=== PATIENT | female | born 1980 | race Caucasian/White ===

== ENCOUNTER → 2017-05-26 | Outpatient (CLI) | payer MEDICAID | LOC: BMCIMAGING 15:10 | PROVIDERS: ATTEND Internal Medicine | DX: N83.01 Follicular cyst of right ovary (principal); N83.02 Follicular cyst of left ovary; T83.32XA Displacement of intrauterine contraceptive device, initial encounter ==

== ENCOUNTER 2017-07-01 17:53 | Emergency (ER) | payer MEDICAID ==
[2017-07-01 17:59] VITALS: TEMP 99
--- NOTE | 2017-07-01 18:30 | EDPHY ---
H & P Stated Complaint: Sore throat;neg strep at [facility] care;airway patent Time Seen by Provider: 07/01/17 18:23 HPI/ROS: HPI: This is a 37-year-old female who presents with Chief Complaint: Sore throat;neg strep at [facility];airway patent Location: Throat Quality: Sore Duration: 2 days Signs and Symptoms: No fever, no cough, no neck stiffness, + right swollen glands, Timing: Rapidly worsening Severity: Severe Context: Patient presents from the urgent care for concerns of sore throat that she has had for the last 2 days. She tested negative 1st rapid strep at the urgent care. She reports throat pain is constant and severe in nature, with difficulty swallowing decreased oral intake today. She also complains of swollen right gland that is severe and constant pain. She has a history of strep pharyngitis and peritonsillar abscess several years ago that required drainage and antibiotics. She has taken Tylenol p.m. last night with mild relief of discomfort. Modifying Factors: See above Comment: ROS: see HPI Constitutional: No fever, no chills, no weight loss Eyes: No blurred vision Respiratory: No shortness of breath, no cough Cardiovascular: No chest pain Gastrointestinal: No nausea, no vomiting, no diarrhea Genitourinary: No dysuria Extremities: No myalgias Neurologic: No weakness, no numbness Skin: No rashes Hematologic: No bruising, no bleeding MEDICAL/SURGICAL/SOCIAL HISTORY: Medical history: Generally healthy. Does not take any regular medications. Surgical history: Denies Social history: Employed CONSTITUTIONAL: awake and alert, no obvious distress HEENT: Atraumatic and normocephalic, PERRL, EOMI. Tympanic membranes clear. Oropharynx clear, tonsil on the right is 2+ mild erythema with white exudate; left tonsils 1+ mild erythema; white exudate; uvula midline. Halitosis noted. moist pink mucosa. Airway patent. Right anterior cervical lymphadenopathy noted with tenderness to palpation. No meningismus. Cardiovascular: Normal S1/S2, regular rate, regular rhythm, without murmur rub or gallop. PULMONARY/CHEST: Symmetrical and nontender. Clear to auscultation bilaterally. Good air movement. No accessory muscle usage. ABDOMEN: Soft, nondistended, nontender, no rebound, no guarding, no peritoneal signs, no masses or organomegaly. No CVAT. EXTREMITIES: 2/2 pulses, strength 5/5, no deformities, no clubbing, no cyanosis or edema. NEUROLOGICAL: no focal neuro deficits. GCS 15. SKIN: Warm and dry, no erythema. no rash. Good capillary refill. Source: Patient Exam Limitations: No limitations - Personal History LMP (Females 10-55): 8-14 Days Ago Current Tetanus Diphtheria and Acellular Pertussis (TDAP): Yes - Medical/Surgical History Hx Asthma: No Hx Chronic Respiratory Disease: No Hx Diabetes: No Hx Cardiac Disease: No Hx Renal Disease: No Hx Cirrhosis: No Hx Alcoholism: No Hx HIV/AIDS: No Hx Splenectomy or Spleen Trauma: No - Social History Smoking Status: Never smoked Constitutional: Initial Vital Signs Temperature (C) 37.2 C 07/01/17 17:56 Heart Rate 88 07/01/17 17:56 Respiratory Rate 16 07/01/17 17:56 Blood Pressure 123/84 H 07/01/17 17:56 O2 Sat (%) 98 07/01/17 17:56 O2 Delivery Mode Room Air Allergies/Adverse Reactions: No Known Allergies Allergy (Unverified 07/01/17 17:56) Home Medications: Medication Instructions Recorded NK [No Known Home Meds] 07/01/17 Medical Decision Making ED Course/Re-evaluation: Labs, IV fluid, IV medications ordered Patient is afebrile without systemic signs. Parker criteria is 2; equivocal for antibiotic use Rapid strep was negative at the urgent care and sent for culture; will not repeat test. Patient does not have signs of airway compromise/respiratory distress/meningitis /sepsis/tonsillar abscess/Josh's angina Given IVF 1 liter, IV Decadron, IV Toradol and PO viscous lidocaine IM Bicillin given due to hx strep and tonsillar abscess. [place] positive Reassessed patient who is laughing and giggling and cuddling with her significant other in the erivn bed. Advised supportive care. Differential Diagnosis: Differential diagnosis includes but is not limited to strep pharyngitis, viral pharyngitis, lymphadenitis, mononucleosis, viral syndrome. - Data Points Laboratory Results: Laboratory Results 07/01/17 18:55 07/01/17 18:55 07/01/17 07/01/17 07/01/17 18:55 18:55 18:55 WBC 18.36 10^3/uL H 10^3/uL (3.80-9.50) RBC 4.95 10^6/uL 10^6/uL (4.18-5.33) Hgb 14.9 g/dL g/dL (12.6-16.3) Hct 42.4 % % (38.0-47.0) MCV 85.7 fL fL (81.5-99.8) MCH 30.1 pg pg (27.9-34.1) MCHC 35.1 g/dL g/dL (32.4-36.7) RDW 11.9 % % (11.5-15.2) Plt Count 265 10^3/uL 10^3/uL (150-400) MPV 9.4 fL fL (8.7-11.7) Neut % (Auto) 84.9 % H % (39.3-74.2) Lymph % (Auto) 7.3 % L % (15.0-45.0) [place] % (Auto) 6.8 % % (4.5-13.0) Eos % (Auto) 0.1 % L % (0.6-7.6) Baso % (Auto) 0.4 % % (0.3-1.7) Nucleat RBC Rel Count 0.0 % % (0.0-0.2) Absolute Neuts (auto) 15.59 10^3/uL H 10^3/uL (1.70-6.50) Absolute Lymphs (auto) 1.34 10^3/uL 10^3/uL (1.00-3.00) Absolute Monos (auto) 1.24 10^3/uL H 10^3/uL (0.30-0.80) Absolute Eos (auto) 0.02 10^3/uL L 10^3/uL (0.03-0.40) Absolute Basos (auto) 0.07 10^3/uL 10^3/uL (0.02-0.10) Absolute Nucleated RBC 0.00 10^3/uL 10^3/uL (0-0.01) Immature Gran % 0.5 % % (0.0-1.1) Immature Gran # 0.10 10^3/uL 10^3/uL (0.00-0.10) ESR 9 MM/HR MM/HR (0-20) Sodium 142 mEq/L mEq/L (134-144) Potassium 4.0 mEq/L mEq/L (3.5-5.2) Chloride 104 mEq/L mEq/L (97-110) Carbon Dioxide 26 mEq/l mEq/l (22-31) Anion Gap 12 mEq/L mEq/L (8-16) BUN 7 mg/dL mg/dL (7-23) Creatinine 0.8 mg/dL mg/dL (0.6-1.0) Estimated GFR > 60 Glucose 78 mg/dL mg/dL (70-100) Calcium 9.1 mg/dL mg/dL (8.5-10.4) Monoscreen POSITIVE H (NEGATIVE) Medications Given: Discontinued Medications Dexamethasone (Decadron Injection) 8 mg IVP EDNOW ONE Stop: 07/01/17 18:41 Last Admin: 07/01/17 19:26 Dose: 8 mg Sodium Chloride (Ns) 1,000 mls @ 0 mls/hr IV EDNOW ONE; Wide Open PRN Reason: Protocol Stop: 07/01/17 18:41 Last Admin: 07/01/17 19:15 Dose: 1,000 mls Ketorolac Tromethamine (Toradol) 15 mg IVP/IM EDNOW ONE Stop: 07/01/17 18:41 Last Admin: 07/01/17 19:28 Dose: 15 mg Lidocaine (Lidocaine 2% Viscous) 15 ml PO EDNOW ONE Stop: 07/01/17 18:41 Last Admin: 07/01/17 19:20 Dose: 15 ml Penicillin G Procaine/Benzathine (Bicillin C-R 1.2mm Units Syr) 1,200,000 unit IM ONCE ONE PRN Reason: Protocol Stop: 07/01/17 18:41 Last Admin: 07/01/17 19:27 Dose: 1,200,000 unit Departure - Departure Disposition: Home, Routine, Self-Care Clinical Impression: Infectious mononucleosis without complication Qualifiers: Infectious mononucleosis etiology: other organism Qualified Code(s): B27.80 - Other infectious mononucleosis without complication Condition: Good Instructions: Mononucleosis (ED) Referrals: Anya Odonnell MD [Primary Care Provider] - 5-7 days, if not improved
[2017-07-01] MEDS ORDERED: KETOROLAC 15 MG/1 ML SDV IVP/IM ONE (18:40)
[2017-07-01] MEDS ORDERED: NS 1,000 ML IV ONE (18:40)
[2017-07-01] MEDS ORDERED: BICILLIN C-R 1200000 UNIT/2 ML SYRINGE IM ONE (18:40)
[2017-07-01] MEDS ORDERED: LIDOCAINE 2% VISCOUS 15 ML UDCUP PO ONE (18:40)
[2017-07-01] MEDS ORDERED: DEXAMETHASONE 4 MG/ML VIAL IVP ONE (18:40)
[2017-07-01 19:29] LABS: PLATELET COUNT 265 10^3/uL (150-400)
[2017-07-01 20:14] VITALS: BP 130/76; PULSE 103; RESP 14; O2SAT 96
== END 2017-07-01 20:14 | disposition home or self-care (01) ==
PROC: 3E0337Z Introduction of Electrolytic and Water Balance Substance into Peripheral Vein, Percutaneous Approach (ICD-10-PCS; principal; 2017-07-01)
DX: B27.80 Other infectious mononucleosis without complication (principal); E86.9 Volume depletion, unspecified
CPT/HCPCS: 96374; J1100; J1885

== ENCOUNTER → 2018-02-21 | Outpatient (CLI) | payer MEDICAID | LOC: BRMIMAGING 09:15 | PROVIDERS: ATTEND Internal Medicine | DX: N64.4 Mastodynia (principal); M25.541 Pain in joints of right hand; M25.542 Pain in joints of left hand | CPT/HCPCS: 73130-PO; 76641-PO ==